=== PATIENT | male | born 1970 | race Hispanic/Latino ===

== ENCOUNTER 2020-06-10 13:54 | Inpatient (IN) | payer OTHER, SELFPAY ==
[~2020-06-10] VITALS: Ht 172.7 cm; Wt 63.3 kg
[2020-06-10 14:51] LABS: BASOPHILS % (AUTO) 0.4 % (0.0-5.0); EOSINOPHILS % (AUTO) 2.3 % (0.0-8.0); HEMATOCRIT 31.2 % (42-54); LYMPHOCYTES % (AUTO) 24.4 % (21.0-51.0); MEAN CORPUSCULAR HEMOGLOBIN 25.2 pg (27.0-33.0); MEAN CORPUSCULAR HGB CONC 32.4 g/dL (32.0-36.0); MEAN CORPUSCULAR VOLUME 77.8 fL (79-99); MONOCYTES % (AUTO) 9.1 % (3.0-13.0); NEUTROPHILS % (AUTO) 63.4 % (40.0-77.0); PLATELET COUNT (AUTO) 273 K/uL (130-400); RED BLOOD CELL COUNT(AUTO) 4.01 MIL/uL (4.50-6.20); RED CELL DISTRIBUTION WIDTH 16.1 % (11.0-15.5); WHITE BLOOD COUNT (AUTO) 6.9 K/uL (4.8-10.8)
[2020-06-10 15:02] LABS: CREATININE 1.1 mg/dL (0.5-1.5); POTASSIUM 3.9 mmol/L (3.5-5.1)
[2020-06-10 15:06] LABS: ALBUMIN 2.6 g/dL (3.5-5.0); BILIRUBIN,TOTAL 0.3 mg/dL (0.2-1.0); TOTAL PROTEIN, SERUM 7.1 g/dL (6.0-8.3)
[2020-06-10] MEDS ORDERED: ENOXAPARIN SODIUM 40 MG/0.4 ML SYRINGE SQ ONE (18:04)
[2020-06-10] MEDS ORDERED: AZITHROMYCIN 500MG+NS 250ML 250 ML IV ONE (18:04)
[2020-06-10] MEDS ORDERED: CEFTRIAXONE SODIUM 1 GM ONE (18:05)
[2020-06-10] MEDS ORDERED: ALBUTEROL INHALER 90MCG/INH IH PRN (19:15)
[2020-06-10] MEDS: ALBUTEROL INHALER 90MCG/INH IH SCH ×2 (19:15→23:15)
[2020-06-10] MEDS ORDERED: DEXAMETHASONE SOD PHOSPHATE 10MG/ML 1ML VIAL ONE (19:21)
[2020-06-10] MEDS ORDERED: ERGOCALCIFEROL (VITAMIN D2) 50,000 UNIT CAPSULE PO ONE (19:30)
[2020-06-10] MEDS ORDERED: DIPHENHYDRAMINE HCL 25 MG CAPSULE PO PRN (20:00)
[2020-06-10] MEDS ORDERED: NITROGLYCERIN 0.4 MG SL TAB SL PRN (20:00)
[2020-06-10] MEDS ORDERED: ONDANSETRON HCL 4 MG/2 ML VIAL IV PRN (20:00)
[2020-06-10] MEDS ORDERED: ACETAMINOPHEN 325 MG TAB PO PRN ×2 (20:00)
[2020-06-10] MEDS ORDERED: SODIUM CHLORIDE 0.9% 1000ML 1,000 ML IV SCH (20:00)
[2020-06-10] MEDS ORDERED: SODIUM CHLORIDE 0.9% 1000ML 1,000 ML IV ONE (20:22)
[2020-06-10] MEDS ORDERED: ERGOCALCIFEROL (VITAMIN D2) 50,000 UNIT CAPSULE ONE (20:22)
[2020-06-10] MEDS ORDERED: FAMOTIDINE 20MG TAB 20 MG TAB ONE (20:22)
[2020-06-10 20:36] LABS: ABG BASE EXCESS -4.6 mmol/L (-2.0-3.0); ABG HCO3 18.6 mmol/L (21.0-28.0); ABG OXYGEN SATURATION 93.7 % (95.0-99.0); ABG PCO2 30 mmHg (35-48)
[2020-06-10] MEDS: METHYLPREDNISOLONE SOD SUCC 40MG/ML 1ML IVP SCH (21:00)
[2020-06-10] MEDS: ENOXAPARIN SODIUM 80 MG/0.8 ML SQ SCH (21:00)
[2020-06-10] MEDS: FAMOTIDINE 20MG TAB 20 MG TAB PO SCH (21:00)
[2020-06-10] MEDS ORDERED: NYSTATIN 100000 UNIT/ML 5ML UDCUP PO ONE (21:30)
[2020-06-10 22:29] LABS: INR 1.06 (0.85-1.15); PARTIAL THROMBOPLASTIN TIME 33.6 SEC (26.3-35.5); PROTHROMBIN TIME 11.4 SEC (9.6-11.6)
[2020-06-11] MEDS ORDERED: IOHEXOL 350 MG/ML 100ML INFUS..BTL IV ONE (00:56)
[2020-06-11] MEDS: ALBUTEROL INHALER 90MCG/INH IH SCH ×6 (03:15→23:15)
[2020-06-11] MEDS ORDERED: METHYLPREDNISOLONE SOD SUCC 40MG/ML 1ML ONE ×3 (05:50→19:45)
[2020-06-11 06:38] LABS: HEMATOCRIT 31.5 % (42-54); LYMPHOCYTES % (AUTO) 38.5 % (21.0-51.0); MEAN CORPUSCULAR HEMOGLOBIN 25.2 pg (27.0-33.0); MEAN CORPUSCULAR HGB CONC 32.7 g/dL (32.0-36.0); MEAN CORPUSCULAR VOLUME 77.2 fL (79-99); MONOCYTES % (AUTO) 4.3 % (3.0-13.0); NEUTROPHILS % (AUTO) 56.9 % (40.0-77.0); PLATELET COUNT (AUTO) 275 K/uL (130-400); RED BLOOD CELL COUNT(AUTO) 4.08 MIL/uL (4.50-6.20); RED CELL DISTRIBUTION WIDTH 16.1 % (11.0-15.5)
[2020-06-11 06:54] LABS: ALBUMIN 2.3 g/dL (3.5-5.0); BILIRUBIN,TOTAL 0.2 mg/dL (0.2-1.0); CREATININE 0.8 mg/dL (0.5-1.5); CRP QUANTITATIVE 66.5 mg/L (0.00-9.0); POTASSIUM 4.4 mmol/L (3.5-5.1); TOTAL PROTEIN, SERUM 6.5 g/dL (6.0-8.3)
[2020-06-11 07:05] LABS: APPEARANCE,URINE Clear (CLEAR); BILIRUBIN,URINE Negative (NEGATIVE); COLOR,URINE Yellow (YELLOW); GLUCOSE, URINE (UA) Negative (NEGATIVE); KETONES,URINE Negative (NEGATIVE); LEUKOCYTE ESTERASE ,URINE Negative (NEGATIVE); NITRATE,URINE Negative (NEGATIVE); OCCULT BLOOD,URINE Negative (NEGATIVE); PROTEIN,URINE Trace mg/dL (NEGATIVE); UROBILINOGEN,URINE 0.2 mg/dL (0.2-1.0)
[2020-06-11 07:10] LABS: AMPHET/METH SCREEN,URINE NEGATIVE (NEGATIVE); BARBITURATE SCREEN, URINE NEGATIVE (NEGATIVE); BENZODIAZEPINES SCREEN,URINE NEGATIVE (NEGATIVE); CANNABINOID SCREEN,URINE NEGATIVE (NEGATIVE); COCAINE SCREEN,URINE NEGATIVE (NEGATIVE); OPIATE SCREEN,URINE NEGATIVE (NEGATIVE); PHENCYCLIDINE SCREEN,URINE NEGATIVE (NEGATIVE)
[2020-06-11 07:38] LABS: BACTERIA,URINE None Seen /HPF (None Seen); RBC,URINE 0-1 /HPF (0-1); WBC,URINE 0-1 /HPF (0-1)
[2020-06-11 07:39] LABS: SQUAMOUS EPITHELIAL CELL,UR 0-2 /HPF (0-2)
[2020-06-11] MEDS ORDERED: ASCORBIC ACID 500 MG TAB ONE (08:18)
[2020-06-11] MEDS ORDERED: ENOXAPARIN SODIUM 80 MG/0.8 ML SQ ONE ×2 (08:18→19:45)
[2020-06-11] MEDS ORDERED: FAMOTIDINE 20MG TAB 20 MG TAB ONE ×2 (08:18→19:45)
[2020-06-11] MEDS ORDERED: ZINC SULFATE 220 CAPSULE ONE (08:18)
[2020-06-11 08:31] LABS: LYMPHOCYTES % (MANUAL) 51 % (22-44); MAN.DIFF COMMENT-IMPRESSION MANUAL DIFFERENTIAL; MONOCYTES % (MANUAL) 1 % (2-9); SEGMENTED NEUTROPHILS % 48 % (40-70)
[2020-06-11 08:32] LABS: PLATELET MORPHOLOGY COMMENT ADEQUATE
[2020-06-11] MEDS: FAMOTIDINE 20MG TAB 20 MG TAB PO SCH ×2 (09:00→21:00)
[2020-06-11] MEDS: CEFTRIAXONE SODIUM 1 GM IV SCH (09:00)
[2020-06-11] MEDS: ASCORBIC ACID 500 MG TAB PO SCH (09:00)
[2020-06-11] MEDS: ENOXAPARIN SODIUM 80 MG/0.8 ML SQ SCH ×2 (09:00→21:00)
[2020-06-11] MEDS: METHYLPREDNISOLONE SOD SUCC 40MG/ML 1ML IVP SCH ×3 (09:00→21:00)
[2020-06-11] MEDS: ZINC SULFATE 220 CAPSULE PO SCH (09:00)
[2020-06-11] MEDS: AZITHROMYCIN 500MG+NS 250ML 250 ML IV SCH (09:00)
[2020-06-11] MEDS: NYSTATIN 100000 UNIT/ML 5ML UDCUP PO SCH ×2 (14:00→22:00)
[2020-06-11] MEDS ORDERED: CEFTRIAXONE SODIUM 1 GM ONE (19:46)
[2020-06-12] MEDS: ALBUTEROL INHALER 90MCG/INH IH SCH ×6 (03:15→23:15)
[2020-06-12] MEDS: NYSTATIN 100000 UNIT/ML 5ML UDCUP PO SCH ×3 (06:00→22:18)
[2020-06-12] MEDS ORDERED: METHYLPREDNISOLONE SOD SUCC 40MG/ML 1ML ONE (07:39)
[2020-06-12] MEDS ORDERED: ENOXAPARIN SODIUM 80 MG/0.8 ML SQ ONE (07:39)
[2020-06-12] MEDS ORDERED: ASCORBIC ACID 500 MG TAB ONE (07:39)
[2020-06-12] MEDS ORDERED: ZINC SULFATE 220 CAPSULE ONE (07:40)
[2020-06-12] MEDS ORDERED: AZITHROMYCIN 500MG+NS 250ML 250 ML IV ONE (07:40)
[2020-06-12] MEDS ORDERED: FAMOTIDINE 20MG TAB 20 MG TAB ONE (07:40)
[2020-06-12 07:43] LABS: HEMATOCRIT 32.4 % (42-54); LYMPHOCYTES % (AUTO) 14.3 % (21.0-51.0); MEAN CORPUSCULAR HEMOGLOBIN 24.8 pg (27.0-33.0); MEAN CORPUSCULAR HGB CONC 32.1 g/dL (32.0-36.0); MEAN CORPUSCULAR VOLUME 77.1 fL (79-99); MONOCYTES % (AUTO) 7.7 % (3.0-13.0); PLATELET COUNT (AUTO) 341 K/uL (130-400); RED CELL DISTRIBUTION WIDTH 16.2 % (11.0-15.5); WHITE BLOOD COUNT (AUTO) 8.9 K/uL (4.8-10.8)
[2020-06-12 08:10] LABS: ALBUMIN 2.3 g/dL (3.5-5.0); BILIRUBIN,TOTAL 0.2 mg/dL (0.2-1.0); CREATININE 0.8 mg/dL (0.5-1.5); CRP QUANTITATIVE 24.3 mg/L (0.00-9.0); POTASSIUM 4.4 mmol/L (3.5-5.1); TOTAL PROTEIN, SERUM 6.4 g/dL (6.0-8.3)
[2020-06-12] MEDS: CEFTRIAXONE SODIUM 1 GM IV SCH (09:00)
[2020-06-12] MEDS: METHYLPREDNISOLONE SOD SUCC 40MG/ML 1ML IVP SCH ×3 (09:00→22:17)
[2020-06-12] MEDS: FAMOTIDINE 20MG TAB 20 MG TAB PO SCH ×2 (09:00→22:17)
[2020-06-12] MEDS: ASCORBIC ACID 500 MG TAB PO SCH (09:00)
[2020-06-12] MEDS: AZITHROMYCIN 500MG+NS 250ML 250 ML IV SCH (09:00)
[2020-06-12] MEDS: ENOXAPARIN SODIUM 80 MG/0.8 ML SQ SCH ×2 (09:00→22:18)
[2020-06-12] MEDS: ZINC SULFATE 220 CAPSULE PO SCH (09:00)
[2020-06-12 13:28] VITALS: BP 98/68
[2020-06-12 17:08] VITALS: BP 99/61
[2020-06-12 19:10] VITALS: BP 99/58
[2020-06-12] MEDS: SULFAMETHOX-TMP DS 800/160 TAB PO SCH (22:17)
[2020-06-12 23:56] VITALS: BP 93/63
[2020-06-13 03:10] VITALS: BP 98/62
[2020-06-13] MEDS: ALBUTEROL INHALER 90MCG/INH IH SCH ×6 (03:15→23:15)
[2020-06-13 04:36] LABS: HEMATOCRIT 30.8 % (42-54); LYMPHOCYTES % (AUTO) 10.3 % (21.0-51.0); MEAN CORPUSCULAR HEMOGLOBIN 24.9 pg (27.0-33.0); MEAN CORPUSCULAR HGB CONC 32.5 g/dL (32.0-36.0); MEAN CORPUSCULAR VOLUME 76.6 fL (79-99); MONOCYTES % (AUTO) 6.2 % (3.0-13.0); NEUTROPHILS % (AUTO) 82.2 % (40.0-77.0); PLATELET COUNT (AUTO) 333 K/uL (130-400); RED BLOOD CELL COUNT(AUTO) 4.02 MIL/uL (4.50-6.20); WHITE BLOOD COUNT (AUTO) 9.1 K/uL (4.8-10.8)
[2020-06-13 04:55] LABS: ALBUMIN 2.3 g/dL (3.5-5.0); BILIRUBIN,TOTAL 0.2 mg/dL (0.2-1.0); CREATININE 0.8 mg/dL (0.5-1.5); CRP QUANTITATIVE 13.7 mg/L (0.00-9.0); POTASSIUM 4.1 mmol/L (3.5-5.1); TOTAL PROTEIN, SERUM 6.2 g/dL (6.0-8.3)
[2020-06-13] MEDS: NYSTATIN 100000 UNIT/ML 5ML UDCUP PO SCH ×3 (06:18→23:27)
[2020-06-13] MEDS: FLUCONAZOLE 100 MG TAB PO SCH (08:35)
[2020-06-13] MEDS: SULFAMETHOX-TMP DS 800/160 TAB PO SCH ×2 (08:35→23:26)
[2020-06-13] MEDS: METHYLPREDNISOLONE SOD SUCC 40MG/ML 1ML IVP SCH ×3 (08:35→23:26)
[2020-06-13] MEDS: ASCORBIC ACID 500 MG TAB PO SCH (08:35)
[2020-06-13] MEDS: FAMOTIDINE 20MG TAB 20 MG TAB PO SCH ×2 (08:35→23:26)
[2020-06-13] MEDS: ZINC SULFATE 220 CAPSULE PO SCH (08:36)
[2020-06-13] MEDS: CEFTRIAXONE SODIUM 1 GM IV SCH (08:36)
[2020-06-13] MEDS: AZITHROMYCIN 500MG+NS 250ML 250 ML IV SCH (08:38)
[2020-06-13] MEDS: ENOXAPARIN SODIUM 80 MG/0.8 ML SQ SCH ×2 (08:38→23:27)
[2020-06-13 08:48] VITALS: BP 97/67
[2020-06-13 12:11] VITALS: BP 99/67
[2020-06-13 17:00] VITALS: BP 101/69
[2020-06-13 19:00] VITALS: BP 112/76
[2020-06-13 23:49] VITALS: BP 109/68
[2020-06-14 03:10] VITALS: BP 99/68
[2020-06-14] MEDS: ALBUTEROL INHALER 90MCG/INH IH SCH ×4 (03:15→15:45)
[2020-06-14] MEDS: NYSTATIN 100000 UNIT/ML 5ML UDCUP PO SCH ×2 (06:00→12:32)
[2020-06-14] MEDS: ZINC SULFATE 220 CAPSULE PO SCH (08:16)
[2020-06-14] MEDS: SULFAMETHOX-TMP DS 800/160 TAB PO SCH (08:16)
[2020-06-14] MEDS: ASCORBIC ACID 500 MG TAB PO SCH (08:16)
[2020-06-14] MEDS: FAMOTIDINE 20MG TAB 20 MG TAB PO SCH (08:16)
[2020-06-14] MEDS: FLUCONAZOLE 100 MG TAB PO SCH (08:17)
[2020-06-14] MEDS: CEFTRIAXONE SODIUM 1 GM IV SCH (08:18)
[2020-06-14] MEDS: AZITHROMYCIN 500MG+NS 250ML 250 ML IV SCH (08:18)
[2020-06-14] MEDS: METHYLPREDNISOLONE SOD SUCC 40MG/ML 1ML IVP SCH ×2 (08:18→12:32)
[2020-06-14] MEDS: ENOXAPARIN SODIUM 80 MG/0.8 ML SQ SCH (08:19)
[2020-06-14 12:00] VITALS: BP 103/75
[2020-06-14] MEDS ORDERED: SULF1TAB42 PO (13:54)
[2020-06-15 09:12] LABS: HEPATITIS A ANTIBODY IGM Negative (Negative); HEPATITIS Bs ANTIGEN SCREEN P Negative (Negative)
[2020-06-18 21:07] LABS: RUBEOLA (MEASLES) IGG >300.0 AU/mL (Immune >16.4)
== END 2020-06-14 17:00 | disposition home or self-care (01) | DRG 871 ==
LOC: EDH 13:54 → EDHIP 13:55 → 2DH 06-12 04:07 → EDHIP 06-12 04:46 → 4AH 06-12 10:21 → 3CH 06-13 22:57 → 4AH 06-13 23:21 → 3CH 06-14 01:54 → 4AH 06-14 03:08
PROVIDERS: ADMIT Hospitalist; ATTEND Hospitalist
DX: A41.9 Sepsis, unspecified organism (principal); J18.9 Pneumonia, unspecified organism; J96.01 Acute respiratory failure with hypoxia; E87.1 Hypo-osmolality and hyponatremia; B37.0 Candidal stomatitis; Z21 Asymptomatic human immunodeficiency virus [HIV] infection status; R65.20 Severe sepsis without septic shock; Z20.828 Contact with and (suspected) exposure to other viral communicable diseases; Z88.0 Allergy status to penicillin
CPT/HCPCS: 36415; 36600; 71045; 71275; 80053; 80305; 81001; 82550; 82728; 82803; 83605; 83615; 83690; 84145; 84484; 85025; 85378; 85384; 85610; 85730; 86140; 86359; 86361; 86480; 86592; 86701; 86706; 86708; 86709; 86777; 86778; 86812; 87040; 87283; 87340; 87390; 87486; 87520; 87536; 87581; 87633; 87797; 87798; 87880; 87900; 87901; 93005; 93970; G0378; J0456; J0696; J1100; J1650; J2920; J7030; Q9967; U0003

== ENCOUNTER 2020-06-23 13:45 | Inpatient (IN) | payer OTHER, SELFPAY ==
[2020-06-23] VITALS (12 sets, daily range): BP systolic 86–136; BP diastolic 51–84
[~2020-06-23] VITALS: Ht 172.7 cm; Wt 57.1 kg
[~2020-06-23 13:45] MED LIST: EPINEPHRINE 0.1 MG/ML 10 ML SYG IVP ONE; SODIUM BICARB 8.4% 50ML SYRINGE IVP ONE; SULF1TAB42 PO
[2020-06-23] MEDS ORDERED: DOXYCYCLINE 100MG+NS 250ML 250 ML IV ONE (14:41)
[2020-06-23] MEDS ORDERED: METHYLPREDNISOLONE SOD SUCC 125MG/2ML VIAL ONE (14:41)
[2020-06-23] MEDS ORDERED: ACETAMINOPHEN 325 MG TAB PO PRN ×2 (17:15)
[2020-06-23] MEDS ORDERED: ERGOCALCIFEROL (VITAMIN D2) 50,000 UNIT CAPSULE PO ONE (17:15)
[2020-06-23] MEDS ORDERED: ONDANSETRON HCL 4 MG/2 ML VIAL IV PRN (17:15)
[2020-06-23] MEDS ORDERED: SODIUM CHLORIDE 0.9% IV SCH (18:30)
[2020-06-23] MEDS ORDERED: BACTRIM IV SCH (18:30)
[2020-06-23] MEDS: BACTRIM IV SCH (18:47)
[2020-06-23] MEDS: WATER IV SCH (18:47)
[2020-06-23] MEDS: DEXTROSE 5% IV SCH (18:47)
[2020-06-23] MEDS: LACTATED RINGERS 1000ML 1,000 ML IV SCH (18:57)
--- NOTE | 2020-06-23 19:18 | NUR ---
T ARRIVED ON THE UNIT. 4l nc, a/o X4, vs ARE STABLE. abx STARTED. REPORT WAS GIVEN BED IN LOW POSITION, ALARMS ARE ON, CALL SLADE IN REACH. CONTINUE TO MONITOR
[2020-06-23] MEDS: FAMOTIDINE/PF 20 MG/2 ML VIAL IV SCH (21:49)
[2020-06-23] MEDS: METHYLPREDNISOLONE SOD SUCC 40MG/ML 1ML IVP SCH (21:51)
[2020-06-23] MEDS: DOXYCYCLINE HYCLATE 100 MG TABLET PO SCH (21:51)
[2020-06-23] MEDS: ENOXAPARIN SODIUM 60 MG/0.6 ML SQ SCH (21:52)
[2020-06-24] VITALS (34 sets, daily range): BP systolic 83–118; BP diastolic 51–72
[2020-06-24] MEDS: WATER IV SCH ×4 (00:50→23:42)
[2020-06-24] MEDS: DEXTROSE 5% IV SCH ×4 (00:50→23:42)
[2020-06-24] MEDS: BACTRIM IV SCH ×4 (00:50→23:42)
[2020-06-24] MEDS: LACTATED RINGERS 1000ML 1,000 ML IV SCH (05:51)
[2020-06-24] MEDS: FAMOTIDINE/PF 20 MG/2 ML VIAL IV SCH ×2 (08:41→22:50)
[2020-06-24] MEDS: ZINC SULFATE 220 CAPSULE PO SCH ×2 (08:41→12:00)
[2020-06-24] MEDS: ASCORBIC ACID 500 MG TAB PO SCH (08:41)
[2020-06-24] MEDS: DOXYCYCLINE HYCLATE 100 MG TABLET PO SCH (08:41)
[2020-06-24] MEDS: ENOXAPARIN SODIUM 60 MG/0.6 ML SQ SCH ×2 (08:43→22:51)
[2020-06-24] MEDS: METHYLPREDNISOLONE SOD SUCC 40MG/ML 1ML IVP SCH ×2 (08:43→14:00)
[2020-06-24] MEDS ORDERED: ENOXAPARIN SODIUM 40 MG/0.4 ML SYRINGE SQ SCH (09:00)
--- NOTE | 2020-06-24 10:53 | NUR ---
DC PLAN PATIENT IN COVID UNIT. RE ADMIT 10 DAYS. FROM LAST ADMISSION PATIENT LIVES ALONE, DROVE HIMSELF TO HOSPITAL, HOME. INFO GIVEN FOR [facility]. NEW DIAGNOSIS OF HIV. Addendum: 06/24/20 at 1055 by ROBERTO SALES RN CM Amended: Links added.
[2020-06-24] MEDS: CLOTRIMAZOLE 10 MG TROCHE MM SCH ×2 (15:28→22:52)
[2020-06-24] MEDS: FLUCONAZOLE 100 MG TAB PO SCH (15:28)
[2020-06-24] MEDS: METHYLPREDNISOLONE SOD SUCC 125MG/2ML VIAL IVP SCH ×2 (15:28→22:52)
--- NOTE | 2020-06-24 18:13 | NUR ---
report report called to td quintanilla.
--- NOTE | 2020-06-24 18:30 | NUR ---
pt transferred to room 228 via bed in stable condition w/portable 02 w/belongings at bedside accompanied by 2 RN's.
[2020-06-24] MEDS: CEFTRIAXONE SODIUM 1 GM IV SCH (22:50)
[2020-06-24] MEDS: AZITHROMYCIN 200 MG/ 5 ML BTL PO SCH (22:51)
[2020-06-25 03:31] VITALS: BP 93/58
[2020-06-25] MEDS: METHYLPREDNISOLONE SOD SUCC 125MG/2ML VIAL IVP SCH ×3 (06:09→22:16)
[2020-06-25] MEDS: CLOTRIMAZOLE 10 MG TROCHE MM SCH ×3 (06:09→22:17)
[2020-06-25] MEDS: WATER IV SCH ×3 (09:03→23:54)
[2020-06-25] MEDS: BACTRIM IV SCH ×3 (09:03→23:54)
[2020-06-25] MEDS: DEXTROSE 5% IV SCH ×3 (09:03→23:54)
[2020-06-25] MEDS: FAMOTIDINE/PF 20 MG/2 ML VIAL IV SCH ×2 (09:09→21:23)
[2020-06-25] MEDS: ASCORBIC ACID 500 MG TAB PO SCH (09:09)
[2020-06-25] MEDS: ENOXAPARIN SODIUM 60 MG/0.6 ML SQ SCH (09:12)
[2020-06-25] MEDS: CEFTRIAXONE SODIUM 1 GM IV SCH ×2 (09:13→21:23)
[2020-06-25] MEDS ORDERED: IOHEXOL 350 MG/ML 100ML INFUS..BTL IV ONE (10:21)
[2020-06-25 11:15] VITALS: BP 108/64
[2020-06-25] MEDS: ZINC SULFATE 220 CAPSULE PO SCH (12:02)
[2020-06-25] MEDS ORDERED: METHYLPREDNISOLONE SOD SUCC 40MG/ML 1ML ONE (14:37)
[2020-06-25 15:12] VITALS: BP 99/62
[2020-06-25] MEDS: FLUCONAZOLE 100 MG TAB PO SCH (15:14)
[2020-06-25 20:00] VITALS: BP 107/74
[2020-06-26] VITALS (7 sets, daily range): BP systolic 97–134; BP diastolic 65–76
--- NOTE | 2020-06-26 04:30 | NUR ---
DIP STAND LOADER NOTIFICATION STEPHANIELILIANA RAMIREZ DIP STAND LOADER AT BEDSIDE. UPDATED USING SBAR FORMAT, PARTICULARLY REGARDING RESPIRATORY STATUS INCLUDING, WORK OF BREATHING, SHORTNESS OF BREATH, LOW O2 SATS WITH AND WITHOUT EXERTION AND OVERALL DETERIORATION OF CONDITION. NO ORDERS RECEIVED.
[2020-06-26] MEDS: CLOTRIMAZOLE 10 MG TROCHE MM SCH ×3 (06:36→20:59)
[2020-06-26] MEDS: METHYLPREDNISOLONE SOD SUCC 125MG/2ML VIAL IVP SCH ×3 (06:36→20:59)
[2020-06-26] MEDS: CEFTRIAXONE SODIUM 1 GM IV SCH ×2 (09:57→20:59)
[2020-06-26] MEDS: FAMOTIDINE/PF 20 MG/2 ML VIAL IV SCH ×2 (09:57→20:59)
[2020-06-26] MEDS: ENOXAPARIN SODIUM 40 MG/0.4 ML SYRINGE SQ SCH (09:58)
[2020-06-26] MEDS: ASCORBIC ACID 500 MG TAB PO SCH (09:58)
[2020-06-26] MEDS: DEXTROSE 5% IV SCH ×3 (10:17→23:46)
[2020-06-26] MEDS: BACTRIM IV SCH ×3 (10:17→23:46)
[2020-06-26] MEDS: WATER IV SCH ×3 (10:17→23:46)
[2020-06-26] MEDS: ZINC SULFATE 220 CAPSULE PO SCH (12:49)
[2020-06-26] MEDS: FLUCONAZOLE 100 MG TAB PO SCH (14:52)
--- NOTE | 2020-06-26 19:00 | NUR ---
ASSUMED CARE REPORT RECEIVED USING SBAR FORMAT
--- NOTE | 2020-06-26 20:45 | NUR ---
REPORT GIVEN REPORT GIVEN USING SBAR FORMAT
--- NOTE | 2020-06-26 21:15 | NUR ---
ASSUMED CARE OF PT, A&0X3 IN BED ON 4 L NC. SCHEDULED MEDS GIVEN. DENIES NEEDS/PAIN/CONCERNS. CALL SLADE IN REACH.
[2020-06-27 04:15] VITALS: BP 122/76
[2020-06-27] MEDS: CLOTRIMAZOLE 10 MG TROCHE MM SCH ×3 (06:13→21:49)
[2020-06-27] MEDS: METHYLPREDNISOLONE SOD SUCC 125MG/2ML VIAL IVP SCH ×3 (06:13→21:49)
[2020-06-27 08:11] VITALS: BP 119/68
[2020-06-27] MEDS: ASCORBIC ACID 500 MG TAB PO SCH (09:06)
[2020-06-27] MEDS: FAMOTIDINE/PF 20 MG/2 ML VIAL IV SCH ×2 (09:07→21:49)
[2020-06-27] MEDS: ENOXAPARIN SODIUM 40 MG/0.4 ML SYRINGE SQ SCH (09:07)
[2020-06-27] MEDS: CEFTRIAXONE SODIUM 1 GM IV SCH ×2 (09:07→21:49)
[2020-06-27] MEDS: DEXTROSE 5% IV SCH ×2 (10:13→16:00)
[2020-06-27] MEDS: WATER IV SCH ×2 (10:13→16:00)
[2020-06-27] MEDS: BACTRIM IV SCH ×2 (10:13→16:00)
[2020-06-27 11:16] VITALS: BP 107/70
[2020-06-27] MEDS: ZINC SULFATE 220 CAPSULE PO SCH (12:37)
[2020-06-27] MEDS: FLUCONAZOLE 100 MG TAB PO SCH (13:48)
[2020-06-27 16:17] VITALS: BP 116/86
--- NOTE | 2020-06-27 16:51 | NUR ---
pt alert and oriented, no acute distress noted. pt currently on 2L of oxygen via nasal canula. Tolerating okay with bedrest. Pt instructed to call for out of bed assistance to monitor o2 saturation with exertion, pt verbalized an understanding. Denies pain, pt able to speak with ID today with questions regarding plan of care. Order placed for pt to be moved due to negative coivid, Dr. Fonseca made aware. pt must remain in respiratory isolation for precautions. discharge planning per case management for continued resources upon discharge.
[2020-06-27 20:04] VITALS: BP 102/65
--- NOTE | 2020-06-27 22:00 | NUR ---
SPOKE TO HOSPITALIST PRADIP DOW ABOUT AN ORDER FOR A TRANSFER TO NEGATIVE COVID FLOOR. HOSPITALIST STATED FOR REEVALUATION TO BE DONE ON DAYSHIFT. PATIENT TO REMAIN IN RESPIRATORY ISOLATION PRECAUTION.
[2020-06-27 23:54] VITALS: BP 101/63
[2020-06-28] MEDS: WATER IV SCH ×3 (00:19→17:32)
[2020-06-28] MEDS: DEXTROSE 5% IV SCH ×3 (00:19→17:32)
[2020-06-28] MEDS: BACTRIM IV SCH ×3 (00:19→17:32)
[2020-06-28 04:05] VITALS: BP 125/70
[2020-06-28] MEDS: METHYLPREDNISOLONE SOD SUCC 125MG/2ML VIAL IVP SCH ×3 (06:26→21:19)
[2020-06-28] MEDS: CLOTRIMAZOLE 10 MG TROCHE MM SCH ×3 (06:27→22:15)
[2020-06-28 07:00] VITALS: BP 105/83
[2020-06-28] MEDS: ASCORBIC ACID 500 MG TAB PO SCH (08:50)
[2020-06-28] MEDS: FAMOTIDINE/PF 20 MG/2 ML VIAL IV SCH ×2 (08:50→21:14)
[2020-06-28] MEDS: CEFTRIAXONE SODIUM 1 GM IV SCH ×2 (08:50→21:17)
[2020-06-28] MEDS: ENOXAPARIN SODIUM 40 MG/0.4 ML SYRINGE SQ SCH (08:51)
[2020-06-28 11:00] VITALS: BP 116/76
[2020-06-28] MEDS: ZINC SULFATE 220 CAPSULE PO SCH (13:23)
[2020-06-28] MEDS: FLUCONAZOLE 100 MG TAB PO SCH (13:25)
--- NOTE | 2020-06-28 13:30 | NUR ---
Referral for [facility] Pt. is in Covid Unit; DALIA attempted to speak with pt. by phone, however, pt. short of breath and tired. DALIA informed pt. that [facility] is not currently visiting pt's in hospital due to COVID and are conducting assessments by telephone only. DALIA informed pt. that clinic is able to provide him with multiple services and literature contained contact information. DALIA expressed the importance of pt. following up with a phone interview and requested him to call when he is able to speak with sales planning coordinator; pt. able to answer 'yes'. When asked if pt. was returning home and had someone who could provide transportation home, he answered 'yes'. Pt. answered 'no' to any needs. DALIA provided CODIE Mcgregor with handout on [facility] for pt.
[2020-06-28 16:00] VITALS: BP 108/76
--- NOTE | 2020-06-28 17:14 | NUR ---
1633 spoke with ITALIAN TUTOR, telemetry discontinued pt to be transferred to [address] [place] [address]. 1613 report given to receiving third floor nurse.
--- NOTE | 2020-06-28 18:12 | NUR ---
PT TSF FROM 2ND FL TO 216 A/A X 3, VS. STABLE PT HAS NO PAIN. WILL CONTINUE TO MONITOR.
[2020-06-28 21:09] VITALS: BP 114/55
[2020-06-29 00:14] VITALS: BP 115/69
[2020-06-29] MEDS: BACTRIM IV SCH ×4 (00:40→23:09)
[2020-06-29] MEDS: DEXTROSE 5% IV SCH ×4 (00:40→23:09)
[2020-06-29] MEDS: WATER IV SCH ×4 (00:40→23:09)
[2020-06-29 04:27] VITALS: BP 113/79
[2020-06-29] MEDS: METHYLPREDNISOLONE SOD SUCC 125MG/2ML VIAL IVP SCH ×3 (06:41→20:10)
[2020-06-29 08:02] VITALS: BP 129/51
[2020-06-29] MEDS: ENOXAPARIN SODIUM 40 MG/0.4 ML SYRINGE SQ SCH (10:35)
[2020-06-29] MEDS: CLOTRIMAZOLE 10 MG TROCHE MM SCH ×3 (10:35→20:10)
[2020-06-29] MEDS: FAMOTIDINE/PF 20 MG/2 ML VIAL IV SCH ×2 (10:35→20:10)
[2020-06-29] MEDS: CEFTRIAXONE SODIUM 1 GM IV SCH ×2 (10:35→20:09)
[2020-06-29] MEDS: ASCORBIC ACID 500 MG TAB PO SCH (10:36)
[2020-06-29 11:28] VITALS: BP 123/69
[2020-06-29] MEDS: ZINC SULFATE 220 CAPSULE PO SCH (12:51)
[2020-06-29] MEDS: FLUCONAZOLE 100 MG TAB PO SCH (14:56)
[2020-06-29 16:00] VITALS: BP 111/58
[2020-06-29 19:52] VITALS: BP 115/71
[2020-06-30] VITALS (7 sets, daily range): BP systolic 93–136; BP diastolic 54–93
[2020-06-30] MEDS: CLOTRIMAZOLE 10 MG TROCHE MM SCH ×3 (05:10→22:10)
[2020-06-30] MEDS: METHYLPREDNISOLONE SOD SUCC 125MG/2ML VIAL IVP SCH ×3 (05:11→22:10)
--- NOTE | 2020-06-30 08:53 | NUR ---
DR. AVALOS AWARE OF CONSULT
[2020-06-30] MEDS: CEFTRIAXONE SODIUM 1 GM IV SCH ×2 (10:13→21:25)
[2020-06-30] MEDS: FAMOTIDINE/PF 20 MG/2 ML VIAL IV SCH ×2 (10:13→21:26)
[2020-06-30] MEDS: DEXTROSE 5% IV SCH ×2 (10:13→17:03)
[2020-06-30] MEDS: WATER IV SCH ×2 (10:13→17:03)
[2020-06-30] MEDS: BACTRIM IV SCH ×2 (10:13→17:03)
[2020-06-30] MEDS: ASCORBIC ACID 500 MG TAB PO SCH (10:13)
[2020-06-30] MEDS: ENOXAPARIN SODIUM 40 MG/0.4 ML SYRINGE SQ SCH (10:14)
[2020-06-30] MEDS: ZINC SULFATE 220 CAPSULE PO SCH (12:17)
--- NOTE | 2020-06-30 15:15 | NUR ---
DR AVALOS ROUNDED ON PATIENT NEW ORDERS RECEIVED FOR CORTISOL LEVEL IN AM, ORDERS PLACED
[2020-06-30] MEDS: FLUCONAZOLE 100 MG TAB PO SCH (16:17)
[2020-07-01] MEDS: WATER IV SCH ×4 (00:11→23:53)
[2020-07-01] MEDS: BACTRIM IV SCH ×4 (00:11→23:53)
[2020-07-01] MEDS: DEXTROSE 5% IV SCH ×4 (00:11→23:53)
[2020-07-01 04:00] VITALS: BP 106/59
[2020-07-01] MEDS: CLOTRIMAZOLE 10 MG TROCHE MM SCH ×3 (05:42→21:09)
[2020-07-01] MEDS: METHYLPREDNISOLONE SOD SUCC 125MG/2ML VIAL IVP SCH ×3 (05:42→21:09)
--- NOTE | 2020-07-01 06:16 | NUR ---
PM SHIFT NOTES Pt slept fairly well.Denies pain or sob,afebrile.
--- NOTE | 2020-07-01 06:24 | NUR ---
FLUID RESTRICTION Pt is on 1 liter fluid restriction for hyponatremia.Sign posted on the door.Pt made aware,pt has flat affect.Does not want to talk to staff.
[2020-07-01 07:45] VITALS: BP 104/65
[2020-07-01] MEDS: AZITHROMYCIN 200 MG/ 5 ML BTL PO SCH (09:56)
[2020-07-01] MEDS: MULTIVITAMIN TABLET PO SCH (09:56)
[2020-07-01] MEDS: CEFTRIAXONE SODIUM 1 GM IV SCH ×2 (09:56→21:09)
[2020-07-01] MEDS: ASCORBIC ACID 500 MG TAB PO SCH (09:56)
[2020-07-01] MEDS: FAMOTIDINE/PF 20 MG/2 ML VIAL IV SCH ×2 (09:57→21:09)
[2020-07-01] MEDS: ENOXAPARIN SODIUM 40 MG/0.4 ML SYRINGE SQ SCH (09:57)
[2020-07-01] MEDS ORDERED: DEXTROSE 50%-WATER 50 ML DISP.SYRIN IV SCH ×2 (10:45→14:45)
[2020-07-01] MEDS ORDERED: DEXTROSE 50%-WATER 25 GM/50 ML VIAL IV SCH (10:45)
[2020-07-01] MEDS ORDERED: FUROSEMIDE 10 MG/ML 2ML VIAL IVP SCH (10:45)
[2020-07-01 11:00] VITALS: BP 95/66
[2020-07-01] MEDS: INSULIN HUMULIN R 100 UNIT/ML 3ML SQ SCH ×2 (11:30→16:14)
[2020-07-01] MEDS ORDERED: SODIUM POLYSTYRENE SULFONATE 15 GM/60 ML ML PO SCH ×2 (14:15→15:45)
[2020-07-01] MEDS: ZINC SULFATE 220 CAPSULE PO SCH (14:34)
[2020-07-01] MEDS: FLUCONAZOLE 100 MG TAB PO SCH (14:34)
[2020-07-01] MEDS: CALCIUM CHLORIDE 100 MG/ML 10 ML SYG IVP SCH (14:35)
[2020-07-01] MEDS ORDERED: FUROSEMIDE 10 MG/ML 2ML VIAL ONE (14:40)
[2020-07-01 16:00] VITALS: BP 111/74
[2020-07-01 20:12] VITALS: BP 95/68
--- NOTE | 2020-07-01 21:00 | NUR ---
REFUSED SHOWER Pt offerred a shower per staff,he refused.
[2020-07-01] MEDS: SODIUM BICARBONATE 650 MG TAB PO SCH (21:09)
[2020-07-01] MEDS: TRAZODONE HCL 100 MG TABLET PO SCH (21:09)
[2020-07-02 00:12] VITALS: BP 92/70
[2020-07-02 04:12] VITALS: BP 97/68
[2020-07-02] MEDS: CLOTRIMAZOLE 10 MG TROCHE MM SCH ×3 (06:02→20:25)
[2020-07-02] MEDS: METHYLPREDNISOLONE SOD SUCC 125MG/2ML VIAL IVP SCH ×3 (06:02→22:32)
[2020-07-02] MEDS: INSULIN HUMULIN R 100 UNIT/ML 3ML SQ SCH ×3 (06:08→18:37)
[2020-07-02] MEDS ORDERED: AMLO10TA7 PO (07:52)
[2020-07-02] MEDS ORDERED: APIX5TAB PO (07:52)
[2020-07-02] MEDS ORDERED: LOVA20TA3 PO (07:52)
[2020-07-02] MEDS ORDERED: LOSA1TAB42 PO (07:52)
[2020-07-02 08:00] VITALS: BP 111/83
--- NOTE | 2020-07-02 08:00 | NUR ---
IN BED , ENCOURAGE CARE AND ACTIVITY SOME RESPOND. ORIENTATED TO HIS PLAN OF CARE. CALL LIGHT IN REAC H
[2020-07-02] MEDS: SODIUM POLYSTYRENE SULFONATE 15 GM/60 ML ML PO SCH ×2 (08:15→20:25)
[2020-07-02] MEDS: MULTIVITAMIN TABLET PO SCH (10:00)
[2020-07-02] MEDS: FAMOTIDINE/PF 20 MG/2 ML VIAL IV SCH ×2 (10:00→20:25)
[2020-07-02] MEDS: CEFTRIAXONE SODIUM 1 GM IV SCH ×2 (10:00→20:25)
[2020-07-02] MEDS: SODIUM BICARBONATE 650 MG TAB PO SCH ×3 (10:01→20:25)
[2020-07-02] MEDS: ASCORBIC ACID 500 MG TAB PO SCH (10:01)
[2020-07-02] MEDS: ENOXAPARIN SODIUM 40 MG/0.4 ML SYRINGE SQ SCH (10:02)
[2020-07-02] MEDS: WATER IV SCH ×3 (10:04→23:59)
[2020-07-02] MEDS: DEXTROSE 5% IV SCH ×3 (10:04→23:59)
[2020-07-02] MEDS: BACTRIM IV SCH ×3 (10:04→23:59)
[2020-07-02] MEDS: CALCIUM CHLORIDE 100 MG/ML 10 ML SYG IVP SCH (10:45)
[2020-07-02 12:00] VITALS: BP 108/74
[2020-07-02 16:00] VITALS: BP 128/61
[2020-07-02] MEDS: ZINC SULFATE 220 CAPSULE PO SCH (18:00)
[2020-07-02] MEDS: FLUCONAZOLE 100 MG TAB PO SCH (18:00)
[2020-07-02 20:08] VITALS: BP 96/72
[2020-07-02] MEDS: TRAZODONE HCL 100 MG TABLET PO SCH (20:25)
[2020-07-03] VITALS (7 sets, daily range): BP systolic 97–121; BP diastolic 66–74
--- NOTE | 2020-07-03 05:03 | NUR ---
FLAT AFFECT Pt remains with flat affect.Refusing to shower as per staff.On antibiotic therapy,no adverse reactions noted.v site within normal limits.
[2020-07-03] MEDS: CLOTRIMAZOLE 10 MG TROCHE MM SCH ×3 (05:47→22:23)
[2020-07-03] MEDS: METHYLPREDNISOLONE SOD SUCC 125MG/2ML VIAL IVP SCH ×2 (05:47→18:13)
[2020-07-03] MEDS: INSULIN HUMULIN R 100 UNIT/ML 3ML SQ SCH ×3 (06:14→17:00)
[2020-07-03] MEDS: SODIUM BICARBONATE 650 MG TAB PO SCH ×3 (08:55→22:23)
[2020-07-03] MEDS: ASCORBIC ACID 500 MG TAB PO SCH (08:55)
[2020-07-03] MEDS: FAMOTIDINE/PF 20 MG/2 ML VIAL IV SCH ×2 (08:55→22:22)
[2020-07-03] MEDS: MULTIVITAMIN TABLET PO SCH (08:55)
[2020-07-03] MEDS: ENOXAPARIN SODIUM 40 MG/0.4 ML SYRINGE SQ SCH (08:56)
[2020-07-03] MEDS: SODIUM POLYSTYRENE SULFONATE 15 GM/60 ML ML PO SCH (08:56)
[2020-07-03] MEDS: CEFTRIAXONE SODIUM 1 GM IV SCH ×2 (08:56→22:22)
[2020-07-03] MEDS: BACTRIM IV SCH ×2 (09:36→16:03)
[2020-07-03] MEDS: DEXTROSE 5% IV SCH ×2 (09:36→16:03)
[2020-07-03] MEDS: WATER IV SCH ×2 (09:36→16:03)
[2020-07-03] MEDS: ZINC SULFATE 220 CAPSULE PO SCH (12:46)
--- NOTE | 2020-07-03 14:47 | NUR ---
DYSPHAGIA EVAL COMPLETED. +S/S OF ASPIRATION WITH THIN AND SOLIDS. RECOMMEND PUREED, NECTAR-THICK LIQUIDS; PILLS CRUSHED WITH APPLESAUCE. RECOMMENDATIONS: 1. SKILLED SPEECH THERAPY TARGETING SWALLOWING 3-5XWK FOR 4WKS LTG1: Pt WILL TOLERATE LEAST RESTRICTIVE DIET FOR ALL MEALS AND SNACKS. STG1: Pt WILL TOLERATE PUREED, NECTAR-THICK LIQUIDS WITH NO OVERT S/S OF ASPIRATION. STG2: Pt WILL COMPLETE LARYNGEAL ELEVATION EXERCISES WITH 80% ACCURACY. STG3: Pt WILL COMPLETE PHARYNGEAL STRENGTHENING EXERCISES WITH 80% ACCURACY. STG4: Pt WILL TOLERATE THERAPEUTIC TRIALS OF ADVANCED TEXTURE OF THIN LIQUIDS AND MECHANICAL SOFT WITH NO OVERT S/S OF ASPIRATION. STG5: SKILLED EDUCATION Pt/STAFF. Addendum: 07/03/20 at 1454 by UMER JEONG, [facility] ST Amended: Links added.
[2020-07-03] MEDS: FLUCONAZOLE 100 MG TAB PO SCH (15:40)
[2020-07-03] MEDS: TRAZODONE HCL 100 MG TABLET PO SCH (22:22)
[2020-07-04] MEDS: WATER IV SCH ×4 (00:11→23:56)
[2020-07-04] MEDS: DEXTROSE 5% IV SCH ×4 (00:11→23:56)
[2020-07-04] MEDS: BACTRIM IV SCH ×4 (00:11→23:56)
[2020-07-04 03:28] VITALS: BP 95/62
[2020-07-04] MEDS: METHYLPREDNISOLONE SOD SUCC 125MG/2ML VIAL IVP SCH ×2 (05:58→18:57)
[2020-07-04] MEDS: CLOTRIMAZOLE 10 MG TROCHE MM SCH ×3 (05:58→20:43)
[2020-07-04 08:00] VITALS: BP 93/48
[2020-07-04] MEDS: CEFTRIAXONE SODIUM 1 GM IV SCH (08:48)
[2020-07-04] MEDS: FAMOTIDINE/PF 20 MG/2 ML VIAL IV SCH ×2 (08:49→20:43)
[2020-07-04] MEDS: SODIUM BICARBONATE 650 MG TAB PO SCH ×3 (08:49→20:43)
[2020-07-04] MEDS: MULTIVITAMIN TABLET PO SCH (08:49)
[2020-07-04] MEDS: ASCORBIC ACID 500 MG TAB PO SCH (08:49)
[2020-07-04] MEDS: ENOXAPARIN SODIUM 40 MG/0.4 ML SYRINGE SQ SCH (08:50)
[2020-07-04] MEDS: INSULIN HUMULIN R 100 UNIT/ML 3ML SQ SCH ×3 (09:03→16:58)
[2020-07-04] MEDS: SODIUM POLYSTYRENE SULFONATE 15 GM/60 ML ML PO SCH (09:04)
[2020-07-04] MEDS: SODIUM CHLORIDE 1,000 MG TAB PO SCH ×2 (09:04→17:00)
--- NOTE | 2020-07-04 09:45 | NUR ---
DIET RECOMMENDATION CARPET BINDER COORDINATED WITH NURSE JJ TO CHANGE DIET TO RECOMMENDED DIET OF PUREED, NECTAR-THICK LIQUIDS. SHE VERBALIZED AGREEMENT AND COMPLIANCE WITH RECOMMENDATIONS. CARPET BINDER TO FOLLOW Pt. Addendum: 07/04/20 at 1431 by UMER JEONG, [facility] Amended: Links added.
[2020-07-04] MEDS ORDERED: SODIUM CHLORIDE 0.9% 1000ML 1,000 ML IV SCH (11:30)
[2020-07-04] MEDS ORDERED: SODIUM CHLORIDE 0.9% 1000ML 1,000 ML IV ONE (11:33)
[2020-07-04] MEDS: ZINC SULFATE 220 CAPSULE PO SCH (11:35)
[2020-07-04 11:55] VITALS: BP 111/54
[2020-07-04 11:56] VITALS: BP 96/66
[2020-07-04] MEDS: FLUCONAZOLE 100 MG TAB PO SCH (15:07)
[2020-07-04 16:00] VITALS: BP 109/71
[2020-07-04 20:00] VITALS: BP 98/66
[2020-07-04] MEDS: TRAZODONE HCL 100 MG TABLET PO SCH (20:43)
[2020-07-05] VITALS: BP 95/62
[2020-07-05 03:42] VITALS: BP 100/68
[2020-07-05] MEDS: METHYLPREDNISOLONE SOD SUCC 125MG/2ML VIAL IVP SCH ×2 (05:20→21:18)
[2020-07-05] MEDS: CLOTRIMAZOLE 10 MG TROCHE MM SCH ×3 (06:15→21:20)
[2020-07-05] MEDS: INSULIN HUMULIN R 100 UNIT/ML 3ML SQ SCH ×3 (07:30→16:37)
[2020-07-05] MEDS: WATER IV SCH ×2 (08:00→09:05)
[2020-07-05] MEDS: DEXTROSE 5% IV SCH ×2 (08:00→09:05)
[2020-07-05] MEDS: BACTRIM IV SCH ×2 (08:00→09:05)
[2020-07-05] MEDS: SODIUM POLYSTYRENE SULFONATE 15 GM/60 ML ML PO SCH (08:15)
[2020-07-05 08:16] VITALS: BP 120/79
[2020-07-05] MEDS: SODIUM CHLORIDE 1,000 MG TAB PO SCH ×2 (08:30→16:33)
[2020-07-05] MEDS: ASCORBIC ACID 500 MG TAB PO SCH (08:30)
[2020-07-05] MEDS: SODIUM BICARBONATE 650 MG TAB PO SCH ×3 (08:30→21:20)
[2020-07-05] MEDS: MULTIVITAMIN TABLET PO SCH (08:30)
[2020-07-05] MEDS: FAMOTIDINE/PF 20 MG/2 ML VIAL IV SCH ×2 (08:30→21:18)
[2020-07-05] MEDS: ENOXAPARIN SODIUM 40 MG/0.4 ML SYRINGE SQ SCH (08:31)
[2020-07-05 11:33] VITALS: BP 99/67
--- NOTE | 2020-07-05 11:42 | NUR ---
RD NOTIFICATION Pt admitted with Pneumocystis Jiroveci PNA, COVID Infection. Hx of HIV infection, cachexia. Pt with swallowing difficulty and emesis after eating despite diet modification as per RN. Pt pending GI evaluation. Monitored labs: Na 117, WBC 15.4, K 5.5, C; 89, BUN 28, Alb 2.1. Recommend Ensure Chilled to NTL with meals, if not tolerated recommend altered means nutrition pending GI evaluation RD to continue to monitor. Addendum: 07/05/20 at [address] Amended: Links added.
[2020-07-05] MEDS ORDERED: ONDANSETRON 4 MG TABLET PO PRN (11:45)
[2020-07-05] MEDS ORDERED: ONDANSETRON HCL 4 MG/2 ML VIAL ONE ×2 (11:59→16:28)
[2020-07-05] MEDS: ZINC SULFATE 220 CAPSULE PO SCH (12:15)
--- NOTE | 2020-07-05 12:53 | NUR ---
FOLLOW UP. RECOMMEND SHORT-TERM ALTERNATE MEANS OF NUTRITION/HYDRATION Pt WITH CONTINUED DIFFICULTY SWALLOWING WITH LOW P.O. AT THIS TIME. RECOMMEND SHORT-TERM ALTERNATE MEANS OF NUTRITION/HYDRATION AT THIS TIME. INVENTORY ASSOCIATE AND DRIVER EDUCATED Pt ON RISKS AND CONSEQUENCES OF ASPIRATION. HE VERBALIZED UNDERSTANDING AND AGREEMENT WITH RECOMMENDATION OF SHORT-TERM ALTERNATE MEANS OF NUTRITION/HYDRATION. INVENTORY ASSOCIATE AND DRIVER COORDINATED WITH NURSE BALLARD. Pt'S QUESTIONS ANSWERED AT THIS TIME. PLAN IS FOR RE-EVALUATION AFTER A FEW DAYS OF NUTRITION/HYDRATION. Addendum: 07/05/20 at 1300 by UMER JEONG [facility] Amended: Links added.
--- NOTE | 2020-07-05 15:20 | NUR ---
i informed dr bunn of lab results reported to me by lab K level 6.0 and chloride 89; note i informed him that i was able to talk the patient into taking the kayexelate enema to treat the elevated potassium at about 1330 and i thought the recent bmp drawn at 1400 did not reflect that; he stated to redraw bmp at 1800, and treat with regular insulin and d50.
[2020-07-05] MEDS ORDERED: CALCIUM GLUCONATE 1 GM/10 ML VIAL IV SCH (15:30)
[2020-07-05 16:14] VITALS: BP 103/72
[2020-07-05] MEDS: SULFAMETHOX-TMP DS 800/160 TAB PO SCH (16:18)
[2020-07-05] MEDS ORDERED: DEXTROSE 50%-WATER 50 ML DISP.SYRIN IV ONE (16:29)
[2020-07-05] MEDS ORDERED: DEXTROSE 50%-WATER 50 ML DISP.SYRIN IV SCH ×2 (16:30→22:20)
[2020-07-05] MEDS ORDERED: INSULIN HUMULIN R 100 UNIT/ML 3ML SQ SCH (16:30)
[2020-07-05] MEDS: FLUCONAZOLE 100 MG TAB PO SCH (16:32)
[2020-07-05] MEDS ORDERED: CALCIUM GLUCONATE 1 GM in SODIUM CHLORIDE 0.9% 100 ML IV SCH ×2 (17:00→21:15)
[2020-07-05] MEDS ORDERED: SODIUM POLYSTYRENE SULFONATE 15 GM/60 ML ML RC SCH (17:15)
[2020-07-05] MEDS ORDERED: COSYNTROPIN 0.25 MG VIAL IVP SCH (18:00)
--- NOTE | 2020-07-05 18:47 | NUR ---
pt states he wants his emergency contact to be his mother shey but she does not know yet that he has HIV; he stated he wanted to tell her first so i recomended to him that he give her a call. Addendum: 07/05/20 at 1848 by NELLIE PATEL RN RN pt's mother's number is [phone]
[2020-07-05] MEDS: ALBUTEROL SULFATE 0.083% 2.5 MG/3 ML INH IH SCH ×3 (19:00→22:00)
[2020-07-05 20:00] VITALS: BP 105/71
--- NOTE | 2020-07-05 20:00 | NUR ---
O2Sat maintaining at 85-86% with O2 at 2lpm via NC at this time , thus changed to NRB mask at 15 LPM with O2Sat increased and steady at 98%. Pt denies feeling of discomfort. Distress not noted. Kept monitored.
[2020-07-05] MEDS: TRAZODONE HCL 100 MG TABLET PO SCH (21:00)
--- NOTE | 2020-07-05 21:02 | NUR ---
Potassium rechecked result: 6.0 Got a return call from on-call hospitalist ( Dr. Torres) to report pt rechecked potassium of 6.0. Was also informed that there were 2 kayexalate that was already given by day shift thru enema , since pt cannot tolerate per oral. MD replied he is going to check the labs and will be the one to put the orders. - carried out.
[2020-07-05] MEDS ORDERED: INSULIN HUMULIN R 100 UNIT/ML 3ML IV SCH (22:20)
[2020-07-05] MEDS ORDERED: SODIUM BICARB 50MEQ 50ML VIAL IV SCH (22:20)
[2020-07-06] VITALS (20 sets, daily range): BP systolic 79–140; BP diastolic 48–114
[2020-07-06] MEDS: ALBUTEROL SULFATE 0.083% 2.5 MG/3 ML INH IH SCH ×5 (01:23→18:00)
[2020-07-06] MEDS: METOCLOPRAMIDE 10 MG/2 ML VIAL IVP SCH ×3 (06:43→17:16)
[2020-07-06] MEDS: CLOTRIMAZOLE 10 MG TROCHE MM SCH ×3 (06:43→22:15)
[2020-07-06] MEDS: SODIUM POLYSTYRENE SULFONATE 15 GM/60 ML ML PO SCH (08:11)
[2020-07-06] MEDS ORDERED: ONDANSETRON HCL 4 MG/2 ML VIAL IVP PRN (08:15)
[2020-07-06] MEDS: SULFAMETHOX-TMP DS 800/160 TAB PO SCH ×2 (08:54→09:00)
[2020-07-06] MEDS: PANTOPRAZOLE SODIUM 40 MG TABLET.DR PO SCH ×2 (08:54→09:00)
[2020-07-06] MEDS: SODIUM BICARBONATE 650 MG TAB PO SCH ×4 (08:54→20:58)
[2020-07-06] MEDS: MULTIVITAMIN TABLET PO SCH ×2 (08:54→09:00)
[2020-07-06] MEDS: FAMOTIDINE/PF 20 MG/2 ML VIAL IV SCH ×2 (08:54→20:57)
[2020-07-06] MEDS: ASCORBIC ACID 500 MG TAB PO SCH ×2 (08:54→09:00)
[2020-07-06] MEDS: SODIUM CHLORIDE 1,000 MG TAB PO SCH (08:54)
[2020-07-06] MEDS: ENOXAPARIN SODIUM 40 MG/0.4 ML SYRINGE SQ SCH (08:55)
[2020-07-06] MEDS ORDERED: METHYLPREDNISOLONE SOD SUCC 40MG/ML 1ML IVP SCH (09:00)
--- NOTE | 2020-07-06 09:34 | NUR ---
pt went into resp. distress when i sat him up and took off non rebreather for him to take his oral medication; i had applied the nasal canula at 4L while non rebreather off but, he immediatly became sob and gasping; i re-applied the non rebreather mask; pulse ox showed that he had dropped into the 50% sat when off of mask; pt has PCP pneumonia; dr Bunn was at bedside to witness problem; he stated to make the pt npo, keep mask on, call dr zayas, get abg's and transfer to icu; i have spoken to dr zayas and dr bunn has also spoken to him, i have called respiratory and ordered abg's and spoken to community educator who has called dry house worker about transfering pt; she said at the moment no beds available; dr bunn did speak to the pt about code status and he wants to be a full code; he also stated his mother is to be his decision maker if he is unable to. when face mask re-applied pt sat's 88 to 90 %
[2020-07-06] MEDS ORDERED: HYDROCORTISONE SOD SUCCINATE 100 MG/2 ML VIAL IV SCH ×3 (09:57→14:00)
[2020-07-06] MEDS ORDERED: PHARMACY COMMUNICATION MISC SCH (10:00)
[2020-07-06] MEDS: INSULIN HUMULIN R 100 UNIT/ML 3ML SQ SCH ×2 (11:30→20:58)
[2020-07-06] MEDS: WATER IV SCH ×3 (11:51→22:46)
[2020-07-06] MEDS: BACTRIM IV SCH ×3 (11:51→22:46)
[2020-07-06] MEDS: DEXTROSE 5% IV SCH ×3 (11:51→22:46)
[2020-07-06] MEDS: ZINC SULFATE 220 CAPSULE PO SCH (12:00)
[2020-07-06] MEDS: FLUCONAZOLE 100 MG TAB PO SCH (14:15)
--- NOTE | 2020-07-06 15:07 | NUR ---
i spoke to dr bunn about pt not being able to tolerate oral meds and he stated to hold all oral meds, i mentioned to him diflucan and sodium bicarb and he stated to hold for now.
--- NOTE | 2020-07-06 16:00 | NUR ---
transfer report called to sue quintanilla in icu room 206 move; i moved pt on non rebreather mask at 15 liters via oxygen tank. pt lauro. move well, all belongings went with patient including, cell phone and lap tap w/ chargers for both.
[2020-07-06] MEDS ORDERED: NOREPINEPHRINE 4MG/NS 250ML 250 ML IV ONE (16:54)
[2020-07-06] MEDS: MEROPENEM 500 MG VIAL IVP SCH (17:15)
--- NOTE | 2020-07-06 18:36 | NUR ---
Pt Transfer Received pt as a transfer from other unit. Alert and oriented. NRM in place and tolerating well with 100% O2 saturation. HR-ST. Denies pain. Smells of urine, but refused bath and change of clothes. Urinal placed at bedside. Dr Humphries- assessed pt at bedside and spoke with pt's mother regarding status but not disclosing diagnosis as pt wishes. Pt hypotensive. Levophed initiated at low rate and dose. Will continue to monitor. Instructed to notify MD if SOB or distress occurs-probability of intubation of indefinite.
[2020-07-06] MEDS: TRAZODONE HCL 100 MG TABLET PO SCH (20:57)
[2020-07-06] MEDS: HYDROCORTISONE SOD SUCCINATE 100 MG/2 ML VIAL IV SCH (20:57)
[2020-07-06] MEDS ORDERED: CALCIUM GLUCONATE 1 GM/10 ML VIAL IV ONE (21:21)
[2020-07-06] MEDS ORDERED: FUROSEMIDE 10 MG/ML 4ML VIAL ONE (21:22)
[2020-07-06] MEDS ORDERED: SODIUM BICARB 50MEQ 50ML VIAL ONE (21:26)
[2020-07-06] MEDS ORDERED: FENTANYL 2500MCG+NS 250ML 250 ML IV ONE (23:09)
[2020-07-06] MEDS ORDERED: PROPOFOL 1000 MG/100 ML 100 ML IV ONE (23:57)
[2020-07-07] VITALS (62 sets, daily range): BP systolic 64–122; BP diastolic 37–97
[2020-07-07] MEDS ORDERED: NOREPINEPHRINE 4MG/NS 250ML 250 ML IV ONE (00:03)
[2020-07-07] MEDS ORDERED: LACTATED RINGERS 1000ML 1,000 ML IV ONE (00:50)
[2020-07-07] MEDS ORDERED: PHENYLEPHRINE HCL 10 MG/ML 1ML VIAL IV ONE ×2 (01:19→01:35)
[2020-07-07] MEDS ORDERED: SODIUM CHLORIDE 0.9% 250 ML IV ONE (01:19)
[2020-07-07] MEDS: MEROPENEM 500 MG VIAL IVP SCH ×2 (02:44→15:09)
[2020-07-07] MEDS ORDERED: PROPOFOL 1000 MG/100 ML IV PRN (06:00)
[2020-07-07] MEDS: ALBUTEROL SULFATE 0.083% 2.5 MG/3 ML INH IH SCH ×2 (06:00→22:00)
[2020-07-07] MEDS: CLOTRIMAZOLE 10 MG TROCHE MM SCH ×3 (06:15→22:15)
[2020-07-07] MEDS: BACTRIM IV SCH ×2 (06:19→20:29)
[2020-07-07] MEDS: HYDROCORTISONE SOD SUCCINATE 100 MG/2 ML VIAL IV SCH ×3 (06:19→15:00)
[2020-07-07] MEDS: WATER IV SCH ×2 (06:19→20:29)
[2020-07-07] MEDS: DEXTROSE 5% IV SCH ×2 (06:19→20:29)
--- NOTE | 2020-07-07 06:49 | NUR ---
MD NOTIFED AND PT CONDITION DR TINAJERO WAS CALLED AT 2100 FOR POTASSIUM OF 6.2. MD ORDERED 2 AMPS OF BICARB, I AMP OF CALCIUM AND 40 OF LASIX. ORDERED WAS CARRIED OUT. PER MD IF POTASSIUM IS NOT CORRECTED CALL NEPHROLOGY THEY ARE MANAGING ELECTROLYTES. DR. TINAJERO WAS CALLED AGAIN AT 2223 PATIENT OXYGEN SATURATIONS DROPPED TO THE 80'S. PER MD. CALL MEMORANDUM STATEMENT CLERK TO INTUBATE THE PATIENT. PATIENT WAS INTUBATED AT 2331. RECHECK OF PATIENTS LAB REVEALED POTASSIUM REMAINED HIGH (5.7). NEPHROLOGY WAS PAGED TIMES THREE WITH NO RESPONSE. DR. TINAJERO WAS CALLED AT 0030X 2 TO REPORT INABILITY TO GET NEPHROLOGY AND INCREASE IN PATIENT'S HR. UNABLE TO GET MD. VOICE MAIL WAS LEFT ON THE PHONE. MD WAS CALLED SEVERAL TIMES THROUGH OUT THE NIGHT WITH NO RESPONDS. HOSPITALIST WAS PAGED TWICE WITH NO RESPONSE. ER WAS CALLED AND THIS RN WAS TOLD HOSPITALIST WAS NOT THERE. NO MD HAS RESPONDED UP TO THIS TIME. WILL CONTINUE TO MONITOR PATIENT.
[2020-07-07] MEDS ORDERED: PHENYLEPHRINE HCL 50 MG in SODIUM CHLORIDE 0.9% 250 ML IV PRN (07:17)
[2020-07-07] MEDS ORDERED: PROPOFOL 1000 MG/100 ML 100 ML IV PRN (07:30)
[2020-07-07] MEDS: METOCLOPRAMIDE 10 MG/2 ML VIAL IVP SCH ×3 (08:00→15:10)
[2020-07-07] MEDS ORDERED: SODIUM CHLORIDE 0.9% 1000ML 1,000 ML IV SCH (08:45)
[2020-07-07] MEDS ORDERED: PHARMACY COMMUNICATION MISC SCH (11:27)
[2020-07-07] MEDS ORDERED: SODIUM BICARB 8.4% 50ML SYRING 150 MEQ in DEXTROSE 5%-WATER 1,000 ML IVP SCH (11:30)
[2020-07-07] MEDS ORDERED: FENTANYL CITRATE PF 0.05 MG/ML 1,000 MCG in SODIUM CHLORIDE 0.9% 100 ML IVPB SCH (13:45)
[2020-07-07] MEDS: FLUCONAZOLE 100 MG TAB PO SCH (14:59)
[2020-07-07] MEDS: SODIUM BICARBONATE 650 MG TAB PO SCH ×2 (15:09→20:28)
[2020-07-07] MEDS: FAMOTIDINE/PF 20 MG/2 ML VIAL IV SCH ×2 (15:09→20:25)
[2020-07-07] MEDS: SODIUM POLYSTYRENE SULFONATE 15 GM/60 ML ML PO SCH (15:09)
[2020-07-07] MEDS: ZINC SULFATE 220 CAPSULE PO SCH (15:09)
[2020-07-07] MEDS: PANTOPRAZOLE SODIUM 40 MG TABLET.DR PO SCH (15:09)
[2020-07-07] MEDS: ENOXAPARIN SODIUM 40 MG/0.4 ML SYRINGE SQ SCH (15:10)
[2020-07-07] MEDS: MULTIVITAMIN TABLET PO SCH (15:11)
[2020-07-07] MEDS: VASOPRESSIN 20 UNITS in SODIUM CHLORIDE 0.9% 100 ML IV SCH (15:16)
[2020-07-07] MEDS: FENTANYL 2500MCG+NS 250ML 250 ML IV SCH (15:18)
[2020-07-07] MEDS: ASCORBIC ACID 500 MG TAB PO SCH (15:18)
[2020-07-07] MEDS ORDERED: NOREPINEPHRINE BITARTRATE 32 MG in SODIUM CHLORIDE 0.9% 250 ML IV PRN (18:30)
[2020-07-07] MEDS: PHARMACY COMMUNICATION MISC SCH (19:45)
[2020-07-07] MEDS: MIDAZOLAM 100MG-0.9% NS 100ML 100ML BAG IV PRN (20:25)
[2020-07-07] MEDS: NOREPINEPHRINE BITARTRATE 32 MG in SODIUM CHLORIDE 0.9% 250 ML IV SCH (20:26)
[2020-07-07] MEDS: ALBUMIN (HUMAN) 25% 50 ML IV SCH (21:00)
[2020-07-07] MEDS: INSULIN HUMULIN R 100 UNIT/ML 3ML SQ SCH (21:00)
[2020-07-08] VITALS (60 sets, daily range): BP systolic 73–117; BP diastolic 40–79
[2020-07-08] MEDS: MEROPENEM 500 MG VIAL IVP SCH ×3 (00:24→17:03)
[2020-07-08] MEDS: TRAZODONE HCL 100 MG TABLET PO SCH (00:27)
[2020-07-08] MEDS: HYDROCORTISONE SOD SUCCINATE 100 MG/2 ML VIAL IV SCH ×4 (00:27→17:03)
[2020-07-08] MEDS: VASOPRESSIN 20 UNITS in SODIUM CHLORIDE 0.9% 100 ML IV SCH ×3 (00:51→21:22)
[2020-07-08] MEDS: ALBUTEROL SULFATE 0.083% 2.5 MG/3 ML INH IH SCH ×6 (02:00→22:00)
[2020-07-08] MEDS: PHARMACY COMMUNICATION MISC SCH ×3 (03:45→17:03)
[2020-07-08] MEDS: DEXTROSE 5% IV SCH ×3 (06:13→21:23)
[2020-07-08] MEDS: WATER IV SCH ×3 (06:13→21:23)
[2020-07-08] MEDS: BACTRIM IV SCH ×3 (06:13→21:23)
[2020-07-08] MEDS: CLOTRIMAZOLE 10 MG TROCHE MM SCH ×3 (06:14→21:36)
[2020-07-08] MEDS: INSULIN HUMULIN R 100 UNIT/ML 3ML SQ SCH ×4 (07:30→21:00)
[2020-07-08] MEDS: MULTIVITAMIN TABLET PO SCH (08:04)
[2020-07-08] MEDS: ENOXAPARIN SODIUM 40 MG/0.4 ML SYRINGE SQ SCH (08:04)
[2020-07-08] MEDS: ASCORBIC ACID 500 MG TAB PO SCH (08:04)
[2020-07-08] MEDS: FAMOTIDINE/PF 20 MG/2 ML VIAL IV SCH ×2 (08:04→21:56)
[2020-07-08] MEDS: PANTOPRAZOLE SODIUM 40 MG TABLET.DR PO SCH (08:04)
[2020-07-08] MEDS: METOCLOPRAMIDE 10 MG/2 ML VIAL IVP SCH ×3 (08:06→17:03)
[2020-07-08] MEDS: SODIUM BICARBONATE 650 MG TAB PO SCH ×3 (08:56→21:56)
[2020-07-08] MEDS: SODIUM POLYSTYRENE SULFONATE 15 GM/60 ML ML PO SCH (08:56)
[2020-07-08] MEDS: ALBUMIN (HUMAN) 25% 50 ML IV SCH ×2 (09:00→20:45)
--- NOTE | 2020-07-08 11:26 | NUR ---
FOLLOW UP COMPLETED Pt INTUBATED AT THIS TIME. HOLD SKILLED SPEECH THERAPY. RE-EVALUATION IS RECOMMENDED 24 HOURS POST EXTUBATION. Addendum: 07/08/20 at 1128 by UMER JEONG, [facility] Amended: Links added.
[2020-07-08] MEDS: ZINC SULFATE 220 CAPSULE PO SCH (11:44)
[2020-07-08] MEDS: FLUCONAZOLE 100 MG TAB PO SCH (13:51)
--- NOTE | 2020-07-08 15:19 | NUR ---
RD FOLLOW UP - TUBE FEEDING RECOMMENDATIONS Recommend initiate continuous Vital High Protein (Promote Equivalent) @ 20mls/hr. Goal rate 40mls/hr. Recommend Water flush at 100mls Q6hrs. Recommendations faxed to Day Pt ([id number]), RN received as per Day Pt RN. RD to continue to monitor. Please notify as additional nutrition concerns arise. Thank you. Addendum: 07/08/20 at [address] Amended: Links added.
[2020-07-08] MEDS: MIDAZOLAM 100MG-0.9% NS 100ML 100ML BAG IV PRN (18:45)
[2020-07-08] MEDS: FENTANYL 2500MCG+NS 250ML 250 ML IV SCH (20:06)
[2020-07-08] MEDS: NOREPINEPHRINE BITARTRATE 32 MG in SODIUM CHLORIDE 0.9% 250 ML IV SCH (20:48)
[2020-07-09] VITALS (23 sets, daily range): BP systolic 96–113; BP diastolic 55–83
[2020-07-09] MEDS: HYDROCORTISONE SOD SUCCINATE 100 MG/2 ML VIAL IV SCH ×5 (00:09→23:58)
[2020-07-09] MEDS: MEROPENEM 500 MG VIAL IVP SCH ×4 (00:09→23:59)
[2020-07-09] MEDS: ALBUTEROL SULFATE 0.083% 2.5 MG/3 ML INH IH SCH ×6 (02:00→22:00)
[2020-07-09] MEDS: CLOTRIMAZOLE 10 MG TROCHE MM SCH ×3 (03:02→20:40)
[2020-07-09] MEDS: PHARMACY COMMUNICATION MISC SCH (03:45)
[2020-07-09] MEDS: METOCLOPRAMIDE 10 MG/2 ML VIAL IVP SCH ×3 (06:21→17:11)
[2020-07-09] MEDS: VASOPRESSIN 20 UNITS in SODIUM CHLORIDE 0.9% 100 ML IV SCH ×3 (06:26→22:17)
[2020-07-09] MEDS: INSULIN HUMULIN R 100 UNIT/ML 3ML SQ SCH ×4 (07:30→21:00)
[2020-07-09] MEDS: WATER IV SCH ×3 (07:58→22:00)
[2020-07-09] MEDS: DEXTROSE 5% IV SCH ×3 (07:58→22:00)
[2020-07-09] MEDS: BACTRIM IV SCH ×3 (07:58→22:00)
[2020-07-09] MEDS: MIDAZOLAM 100MG-0.9% NS 100ML 100ML BAG IV PRN ×2 (08:11→17:51)
[2020-07-09] MEDS: PANTOPRAZOLE SODIUM 40 MG TABLET.DR PO SCH (08:41)
[2020-07-09] MEDS: ASCORBIC ACID 500 MG TAB PO SCH (08:46)
[2020-07-09] MEDS: ALBUMIN (HUMAN) 25% 50 ML IV SCH (08:46)
[2020-07-09] MEDS: FAMOTIDINE/PF 20 MG/2 ML VIAL IV SCH ×2 (08:46→21:15)
[2020-07-09] MEDS: ENOXAPARIN SODIUM 40 MG/0.4 ML SYRINGE SQ SCH (08:47)
[2020-07-09] MEDS: FENTANYL 2500MCG+NS 250ML 250 ML IV SCH (10:07)
[2020-07-09] MEDS: MULTIVITAMIN TABLET PO SCH (10:09)
[2020-07-09] MEDS: SODIUM BICARBONATE 650 MG TAB PO SCH ×3 (10:09→21:15)
[2020-07-09] MEDS: ZINC SULFATE 220 CAPSULE PO SCH (12:45)
[2020-07-09] MEDS: FLUCONAZOLE 100 MG TAB PO SCH (14:36)
--- NOTE | 2020-07-09 20:37 | NUR ---
Cont to hold Renagel, pt has NGT, med not to be crushed and Mycelex ( to be dissolved in mouth)-pt vented, NGT. Addendum: 07/09/20 at 4 by ERICK BANKS RN RN Please delete Liyah from above note. Patient does not have this med
[2020-07-09] MEDS: TRAZODONE HCL 100 MG TABLET PO SCH (21:15)
[2020-07-10] VITALS (24 sets, daily range): BP systolic 90–124; BP diastolic 55–80
[2020-07-10] MEDS: FENTANYL 2500MCG+NS 250ML 250 ML IV SCH
[2020-07-10] MEDS: ALBUTEROL SULFATE 0.083% 2.5 MG/3 ML INH IH SCH ×5 (02:00→21:45)
[2020-07-10] MEDS: NOREPINEPHRINE BITARTRATE 32 MG in SODIUM CHLORIDE 0.9% 250 ML IV SCH (02:49)
[2020-07-10] MEDS: CLOTRIMAZOLE 10 MG TROCHE MM SCH ×3 (05:43→22:24)
[2020-07-10] MEDS: METOCLOPRAMIDE 10 MG/2 ML VIAL IVP SCH ×4 (05:43→16:47)
[2020-07-10] MEDS: INSULIN HUMULIN R 100 UNIT/ML 3ML SQ SCH ×3 (05:44→16:30)
[2020-07-10] MEDS: MIDAZOLAM 100MG-0.9% NS 100ML 100ML BAG IV PRN ×2 (06:25→22:25)
[2020-07-10] MEDS: HYDROCORTISONE SOD SUCCINATE 100 MG/2 ML VIAL IV SCH ×4 (06:27→23:45)
[2020-07-10] MEDS: VASOPRESSIN 20 UNITS in SODIUM CHLORIDE 0.9% 100 ML IV SCH ×2 (08:01→17:17)
[2020-07-10] MEDS: BACTRIM IV SCH (08:06)
[2020-07-10] MEDS: DEXTROSE 5% IV SCH (08:06)
[2020-07-10] MEDS: WATER IV SCH (08:06)
[2020-07-10] MEDS: PANTOPRAZOLE SODIUM 40 MG TABLET.DR PO SCH (09:00)
[2020-07-10] MEDS: MEROPENEM 500 MG VIAL IVP SCH ×3 (09:13→23:49)
[2020-07-10] MEDS: FAMOTIDINE/PF 20 MG/2 ML VIAL IV SCH ×2 (09:14→20:35)
[2020-07-10] MEDS: ASCORBIC ACID 500 MG TAB PO SCH (11:53)
[2020-07-10] MEDS: SODIUM BICARBONATE 650 MG TAB PO SCH ×3 (11:53→20:35)
[2020-07-10] MEDS: MULTIVITAMIN TABLET PO SCH (11:53)
[2020-07-10] MEDS: ZINC SULFATE 220 CAPSULE PO SCH (11:57)
[2020-07-10] MEDS: ENOXAPARIN SODIUM 40 MG/0.4 ML SYRINGE SQ SCH (13:20)
[2020-07-10] MEDS: FLUCONAZOLE 100 MG TAB PO SCH (14:16)
--- NOTE | 2020-07-10 15:15 | NUR ---
FOLLOW UP Pt CONTINUES TO BE INTUBATED. SR. PRICING ANALYST WILL FOLLOW UP WITH Pt WHEN EXTUBATED. Addendum: 07/10/20 at 1516 by UMER JEONG [facility] Amended: Links added.
[2020-07-10] MEDS: TRAZODONE HCL 100 MG TABLET PO SCH (20:35)
[2020-07-10] MEDS: SULFAMETHOX-TMP DS 800/160 TAB PO SCH (20:35)
[2020-07-11] VITALS (15 sets, daily range): BP systolic 80–117; BP diastolic 37–79
[2020-07-11] MEDS: FENTANYL 2500MCG+NS 250ML 250 ML IV SCH (00:10)
[2020-07-11] MEDS: ALBUTEROL SULFATE 0.083% 2.5 MG/3 ML INH IH SCH ×2 (02:00→06:00)
[2020-07-11] MEDS: VASOPRESSIN 20 UNITS in SODIUM CHLORIDE 0.9% 100 ML IV SCH (02:10)
[2020-07-11] MEDS: CLOTRIMAZOLE 10 MG TROCHE MM SCH (05:27)
[2020-07-11] MEDS: HYDROCORTISONE SOD SUCCINATE 100 MG/2 ML VIAL IV SCH (05:27)
[2020-07-11] MEDS: INSULIN HUMULIN R 100 UNIT/ML 3ML SQ SCH ×2 (06:51)
[2020-07-11] MEDS: PANTOPRAZOLE SODIUM 40 MG TABLET.DR PO SCH (07:56)
[2020-07-11] MEDS: NOREPINEPHRINE BITARTRATE 32 MG in SODIUM CHLORIDE 0.9% 250 ML IV SCH (08:48)
[2020-07-11] MEDS: MEROPENEM 500 MG VIAL IVP SCH (08:55)
[2020-07-11] MEDS: FAMOTIDINE/PF 20 MG/2 ML VIAL IV SCH (08:56)
[2020-07-11] MEDS: METOCLOPRAMIDE 10 MG/2 ML VIAL IVP SCH (08:57)
[2020-07-11] MEDS: MULTIVITAMIN TABLET PO SCH (08:58)
[2020-07-11] MEDS: ASCORBIC ACID 500 MG TAB PO SCH (08:58)
[2020-07-11] MEDS: SULFAMETHOX-TMP DS 800/160 TAB PO SCH (08:58)
[2020-07-11] MEDS: SODIUM BICARBONATE 650 MG TAB PO SCH (08:58)
[2020-07-11] MEDS: ENOXAPARIN SODIUM 40 MG/0.4 ML SYRINGE SQ SCH (08:59)
--- NOTE | 2020-07-11 10:56 | NUR ---
Mother Марина Meyer at bedside. Made aware of patient condition need for FIO2 100 % and on Levophed and Vasopressin for blood pressure. Mother able to video call daughter Grace Meyer and Bailey Burgos. They stated they would be driving down from [place] and [place] to come see patient. Mother Марина requesting that patient remain full code. Addendum: 07/11/20 at 1623 by CAMILO VILLASEÑOR RN RN Amended: Links added.
--- NOTE | 2020-07-11 12:04 | NUR ---
Patient with no pulse. Code blue called. Refer to Cardiopulmonary arrest record.
[2020-07-11] MEDS ORDERED: EPINEPHRINE 1 MG/ML AMPULE ONE (12:30)
== END 2020-07-11 12:34 | disposition expired | DRG 974 ==
LOC: EDH 13:45 → EDHIP 13:46 → 2BH 18:32 → 2DH 06-24 18:42 → 3CH 06-28 17:49 → 2BH 07-06 16:17 → DAHIP 07-08 14:33
PROVIDERS: ADMIT Internal Medicine; ATTEND Internal Medicine
PROC: 5A1955Z Respiratory Ventilation, Greater than 96 Consecutive Hours (ICD-10-PCS; principal; 2020-07-07)
PROC: 0BH17EZ Insertion of Endotracheal Airway into Trachea, Via Natural or Artificial Opening (ICD-10-PCS; 2020-07-07)
DX: B20 Human immunodeficiency virus [HIV] disease (principal); A41.89 Other specified sepsis; J96.01 Acute respiratory failure with hypoxia; J12.89 Other viral pneumonia; E43 Unspecified severe protein-calorie malnutrition; J93.0 Spontaneous tension pneumothorax; R65.21 Severe sepsis with septic shock; E87.1 Hypo-osmolality and hyponatremia; B37.0 Candidal stomatitis; B15.9 Hepatitis A without hepatic coma; B37.89 Other sites of candidiasis; C46.9 Kaposi's sarcoma, unspecified; E27.1 Primary adrenocortical insufficiency; E87.0 Hyperosmolality and hypernatremia; N17.9 Acute kidney failure, unspecified; G93.49 Other encephalopathy; Z68.1 Body mass index [BMI] 19.9 or less, adult; Z88.0 Allergy status to penicillin; Z88.8 Allergy status to other drugs, medicaments and biological substances; D64.9 Anemia, unspecified; D69.6 Thrombocytopenia, unspecified; E87.5 Hyperkalemia; N18.9 Chronic kidney disease, unspecified; I51.7 Cardiomegaly; R13.10 Dysphagia, unspecified; R62.7 Adult failure to thrive; T36.8X5A Adverse effect of other systemic antibiotics, initial encounter; Z74.01 Bed confinement status; Z91.19 Patient's noncompliance with other medical treatment and regimen; Y92.89 Other specified places as the place of occurrence of the external cause; R53.81 Other malaise; Z20.828 Contact with and (suspected) exposure to other viral communicable diseases
CPT/HCPCS: 31500; 36415; 36600; 70450; 71045; 71250; 71275; 80048; 80053; 80400; 81001; 82435; 82533; 82550; 82728; 82803; 82947; 82948; 83605; 83615; 83735; 83874; 83930; 83935; 84132; 84145; 84295; 84300; 84443; 84484; 84550; 85018; 85025; 85378; 85610; 85651; 85730; 86140; 86359; 86361; 86606; 86612; 86635; 86698; 86900; 86901; 87040; 87088; 87426; 92610; 92950; 93005; 94002; 94003; 94640; 94664; 94760; 99291; A4606; G0378; J0171; J0610; J0696; J0834; J1650; J1720; J1815; J1940; J2185; J2250; J2370; J2405; J2704; J2765; J2920; J2930; J3010; J3490; J7030; J7050; J7060; J7070; J7120; P9047; Q9967; U0003